=== PATIENT | male | born 1955 | race Caucasian/White ===

== ENCOUNTER 2022-12-04 12:07 | Emergency (ER) | payer MEDICARE, OTHER ==
[2022-12-04 12:32] VITALS: BP 144/80; PULSE 76; RESP 16; TEMP 97.6
--- NOTE | 2022-12-04 12:52 | XR ---
EXAMINATION TYPE: XR knee complete LT DATE OF EXAM: 12/04/2022 COMPARISON: NONE HISTORY: Pain and swelling TECHNIQUE: Three views are submitted. FINDINGS: Joint spaces are preserved. Osseous structures are intact. No acute fracture seen. There is an exo stosis off the medial femoral condyle. Evidence of soft tissue edema as well as a suprapatellar bursal fluid collection. Vascular calcificat ions are seen. Arthropathy of the medial compartment of the knee and patellofemoral joint. IMPRESSION: 1. Small exostosis medial femoral condyle. 2. Arthropathy with soft tissue edema and suprapatellar bursal fluid collection. Findings can be asso ciated with internal derangement and knee correlate clinically.
[2022-12-04] MEDS ORDERED: KETOROLAC 15 MG/ML 1 ML VIAL IM STA (13:56)
[2022-12-04] MEDS ORDERED: ACET/COD 300 MG/30 MG STARTER PACK 6 TAB BTL PO STA (14:34)
--- NOTE | 2022-12-04 14:38 | ED ---
General Adult HPI - General Source: patient Mode of arrival: wheelchair Limitations: no limitations <Beryl Briones - Last Filed: 12/04/22 18:31> <Marie Nowak - Last Filed: 12/07/22 23:10> - General Chief complaint: Extremity Problem,Nontraumatic Stated complaint: lt leg pain Time Seen by Provider: 12/04/22 13:35 - History of Present Illness Initial comments: 67-year-old male presenting to the emergency. Room for left knee pain. Patient reports that the pain started yesterday and has progressively gotten worse. He spent trying Tylenol and Motrin and ice without relief. He reports increased swelling to the area. Denies any previous injury or trauma. He denies any calf pain, history of blood clot. She denies dizziness, fever, chest pain, palpitations, shortness of breath, cough, dyspnea. (Beryl Briones) - Related Data Allergies Allergy/AdvReac Type Severity Reaction Status Date / Time ciprofloxacin [From Cipro] Allergy Rash/Hives Verified 12/04/22 12:18 Review of Systems ROS Other: All systems not noted in ROS Statement are negative. <Beryl Briones - Last Filed: 12/04/22 18:31> ROS Other: All systems not noted in ROS Statement are negative. <Marie Nowak - Last Filed: 12/07/22 23:10> ROS Statement: Those systems with pertinent positive or pertinent negative responses have been documented in the HPI. Past Medical History Past Medical History: Coronary Artery Disease (CAD), Cancer, Hypertension History of Any Multi-Drug Resistant Organisms: None Reported Past Surgical History: No Surgical Hx Reported Past Psychological History: No Psychological Hx Reported Smoking Status: Current every day smoker Past Alcohol Use History: Occasional Past Drug Use History: Marijuana <Beryl Briones - Last Filed: 12/04/22 18:31> General Exam Limitations: no limitations General appearance: alert, in no apparent distress Head exam: Present: atraumatic, normocephalic, normal inspection Eye exam: Present: normal appearance, PERRL, EOMI. Absent: scleral icterus, conjunctival injection, periorbital swelling ENT exam: Present: normal exam, mucous membranes moist Neck exam: Present: normal inspection. Absent: tenderness, meningismus, lymphadenopathy Respiratory exam: Present: normal lung sounds bilaterally. Absent: respiratory distress, wheezes, rales, rhonchi, stridor Cardiovascular Exam: Present: regular rate, normal rhythm, normal heart sounds. Absent: systolic murmur, diastolic murmur, rubs, gallop, clicks GI/Abdominal exam: Present: soft, normal bowel sounds. Absent: distended, tenderness, guarding, rebound, rigid Extremities exam: Present: normal inspection, full ROM, normal capillary refill. Absent: tenderness, pedal edema, joint swelling, calf tenderness Left Knee exam: Present: tenderness, swelling (generalized). Absent: full ROM (limited secondary to pain ), ecchymosis, deformity, crepitus, dislocation, erythema Back exam: Present: normal inspection Neurological exam: Present: alert, oriented X3, CN II-XII intact Psychiatric exam: Present: normal affect, normal mood Skin exam: Present: warm, dry, intact, normal color. Absent: rash <Beryl Briones - Last Filed: 12/04/22 18:31> Course Vital Signs 12/04/22 12:15 Temperature 97.6 F Pulse Rate 76 Respiratory 16 Rate Blood Pressure 144/80 O2 Sat by Pulse 98 Oximetry Medical Decision Making <Beryl Briones - Last Filed: 12/04/22 18:31> <Marie Nowak - Last Filed: 12/07/22 23:10> - Medical Decision Making Was pt. sent in by a medical professional or institution ([facility], [employer], urgent care, hospital, or care home...) When possible be specific @ -[No] Did you speak to anyone other than the patient for history (EMS, parent, family, police, friend...)? What history was obtained from this source @ -[No] Did you review nursing and triage notes (agree or disagree)? Why? @ -[I reviewed and agree with nursing and triage notes] Were old charts reviewed (outside hosp., previous admission, EMS record, old EKG, old radiological studies, urgent care reports/EKG's, care home records)? Report findings @ -[No old charts were reviewed] Differential Diagnosis (chest pain, altered mental status, abdominal pain women, abdominal pain men, vaginal bleeding, weakness, fever, dyspnea, syncope, headache, dizziness, GI bleed, back pain, seizure, CVA, palpatations, mental health)? @ -[not applicable] EKG interpreted by me (3pts min.). @ -[As above] X-rays interpreted by me (1pt min.). @ evidence of internal derrangement of L knee, no acute fracture or dislocation CT interpreted by me (1pt min.). @ -[None done] U/S interpreted by me (1pt. min.). @ -[None done] What testing was considered but not performed or refused? (CT, X-rays, U/S, labs)? Why? @ -[None] What meds were considered but not given or refused? Why? @ -[None] Did you discuss the management of the patient with other professionals (professionals i.e. , PA, [employer], lab, RT, psych nurse, social studies department chair, carbide powder processor, teacher, air support control officer, casework manager)? Give summary @ -[No] Was smoking cessation discussed for >3mins.? @ -[No] Was critical care preformed (if so, how long)? @ -[No] Were there social determinants of health that impacted care today? How? (Homelessness, low income, unemployed, alcoholism, drug addiction, transportation, low edu. Level, literacy, decrease access to med. care, halfway, rehab)? @ -[No] Was there de-escalation of care discussed even if they declined (Discuss DNR or withdrawal of care, Hospice)? DNR status @ -[No] What co-morbidities impacted this encounter? (DM, HTN, Smoking, COPD, CAD, Cancer, CVA, ARF, Chemo, Hep., AIDS, mental health diagnosis, sleep apnea, morbid obesity)? @ -[None] Was patient admitted / discharged? Hospital course, mention meds given and route, prescriptions, significant lab abnormalities, going to OR and other pertinent info. @ -1-year-old male presents to the emergency department for atraumatic L knee pain. Patient had history and physical performed, physical exam is reveals edematous L knee with limited ROM secondary to pain. Patient had lab work and imaging ordered and performed while in the emergency department, workup is essentially unremarkable. I discussed the results in detail with the patient, all questions and concerns were addressed. Patient is agreeable with the plan for discharge. The patient was discharged in stable condition with recommended close follow-up with primary care in 1-2 days. He was given a referral for Dr. Sorenson orthopedist. He was given toradol with symptomatic relief. Return precautions were discussed. I discussed the case with Dr. Marina BUCKLEY who agrees with the plan of care. Undiagnosed new problem with uncertain prognosis? @ -[No] Drug Therapy requiring intensive monitoring for toxicity (Heparin, Nitro, Insulin, Cardizem)? @ -[No] Were any procedures done? @ -[No] Diagnosis/symptom? @ -internal derrangement of left knee Acute, or Chronic, or Acute on Chronic? @ -acute Uncomplicated (without systemic symptoms) or Complicated (systemic symptoms)? @ -[default] Side effects of treatment? @ -[No] Exacerbation, Progression, or Severe Exacerbation? @ -[No] Poses a threat to life or bodily function? How? (Chest pain, [place], [place], pneumonia, PE, COPD, DKA, ARF, appy, cholecystitis, CVA, Diverticulitis, Homicidal, Suicidal, threat to staff... and all critical care pts) @ -[No] (Beryl Briones) Attending physician - myself. Not Dr. Meredith (Marie Nowak) Disposition Is patient prescribed a controlled substance at d/c from ED?: No Time of Disposition: 14:38 <Beryl Briones - Last Filed: 12/04/22 18:31> <Marie Nowak - Last Filed: 12/07/22 23:10> Clinical Impression: Internal derangement of knee Disposition: HOME SELF-CARE Condition: Stable Additional Instructions: Return to the nearest emergency department if worsening redness, erythema, swelling. Referrals: Nonstaff,Physician [REFERRING] - 1-2 days Addy Sorenson DO [Doctor of Osteopathic Medicine] - 1-2 days
== END 2022-12-04 15:16 | disposition home or self-care (01) ==
LOC: EC 12:07
DX: M23.92 Unspecified internal derangement of left knee (principal); I10 Essential (primary) hypertension; I25.10 Atherosclerotic heart disease of native coronary artery without angina pectoris; F17.200 Nicotine dependence, unspecified, uncomplicated; F12.90 Cannabis use, unspecified, uncomplicated; Z88.1 Allergy status to other antibiotic agents
CPT/HCPCS: 73562; 99283; 96372; L1830; J1885

== ENCOUNTER → 2025-06-21 | Outpatient (CLI) | payer MEDICARE, OTHER | END | disposition home or self-care (01) | LOC: LABWHC1 12:40 | PROVIDERS: ATTEND Urology | DX: C61 Malignant neoplasm of prostate (principal) | CPT/HCPCS: 36415; 84153 ==